=== PATIENT | female | born 1995 | race Caucasian/White ===

== ENCOUNTER 2022-09-11 00:58 | Emergency (ER) | payer BC ==
[2022-09-11 01:27] VITALS: BP 127/87; PULSE 122; RESP 18; TEMP 98.1; BMI 25.0
[2022-09-11] MEDS ORDERED: SODIUM CHLORIDE 0.9% 500 ML INFUS.BAG IV ONE (01:27)
[2022-09-11] MEDS ORDERED: ACETAMINOPHEN 500 MG TABLET (FP) PO ONE (01:27)
[2022-09-11] MEDS ORDERED: ACETAMINOPHEN 325 MG TABLET (FP) ONE (01:53)
[2022-09-11 02:36] LABS: POTASSIUM 3.9 mmol/L (3.5-5.1)
[2022-09-11 02:37] LABS: BASO % 0.3 % (0-2.0); EOS % 2.8 % (0-4.5); HEMATOCRIT 39.7 % (32.4-45.2); HEMOGLOBIN 13.9 GM/dL (10.7-15.3); LYMPH % 21.7 % (8-40); MCH 30.7 pg (25.7-33.7); MEAN CELL VOLUME 87.6 fl (80-96); MEAN PLT VOLUME 8.7 fl (7.5-11.1); MONO % 5.8 % (3.8-10.2); NEUT % 69.4 % (42.8-82.8); PLATELET COUNT 229 10^3/uL (134-434); RBC 4.53 M/mm3 (3.60-5.2); RDW 13.1 % (11.6-15.6); WHITE BLOOD COUNT 11.7 K/mm3 (4.0-10.0)
[2022-09-11 02:38] LABS: ALBUMIN 3.4 g/dl (3.4-5.0); CALCIUM 9.1 mg/dL (8.5-10.1)
[2022-09-11 02:39] LABS: BLOOD UREA NITROGEN 18.4 mg/dL (7-18)
[2022-09-11 02:41] LABS: CREATININE 0.8 mg/dL (0.55-1.3)
[2022-09-11 02:43] LABS: BILIRUBIN,TOTAL 0.3 mg/dL (0.2-1); TOT PROT 7.1 g/dl (6.4-8.2)
== END 2022-09-11 03:05 | disposition home or self-care (01) ==
LOC: JER 00:58
DX: R07.89 Other chest pain (principal); R55 Syncope and collapse; R06.02 Shortness of breath
CPT/HCPCS: 36415; 71046-TC-FY; 80053; 84484; 84703; 85025; 93005; 93010; 99285-25